=== PATIENT | male | born 1970 | race Two or more races ===

== ENCOUNTER 2022-10-05 15:19 | Emergency (ER) | payer OTHER ==
[~2022-10-05] VITALS: Ht 167.6 cm; Wt 90.7 kg
[2022-10-05] MEDS ORDERED: CLOPIDOGREL BIS75 MG PO (15:29)
[2022-10-05] MEDS ORDERED: ATORVASTATIN CA80 MG PO (15:30)
[2022-10-05] MEDS ORDERED: CO Q-10200 MG (15:30)
== END 2022-10-05 18:52 | disposition home or self-care (01) ==
LOC: ER 15:19
DX: S43.085A Other dislocation of left shoulder joint, initial encounter (principal); S42.262A Displaced fracture of lesser tuberosity of left humerus, initial encounter for closed fracture; W19.XXXA Unspecified fall, initial encounter; Y93.9 Activity, unspecified; Y92.9 Unspecified place or not applicable; Z88.6 Allergy status to analgesic agent